=== PATIENT | male | born 1960 | race Caucasian/White ===

== ENCOUNTER 2022-02-23 23:07 | Observation (INO) | payer BC ==
[2022-02-23] MEDS ORDERED: Sodium Chloride 0.9% 10 ML Syringe FLUSH PRN (23:10)
[2022-02-23] MEDS ORDERED: Diltiazem 25 MG/5 ML SDV IVPUSH ONE (23:17)
[2022-02-23 23:58] LABS: ESTIMATED GFR 39 mL/min (>60); TROPONIN I HIGH SENSITIVITY 23.8 pg/mL (<=60.3)
[2022-02-24] MEDS ORDERED: Sodium Chloride 0.9% 1,000 ML IV SCH ×2 (00:15→01:03)
[2022-02-24] MEDS ORDERED: Enoxaparin 40 MG/0.4 ML Syringe SUBCUT SCH (01:03)
[2022-02-24] MEDS ORDERED: LORazepam 0.5 MG Tab PO PRN (01:03)
[2022-02-24] MEDS ORDERED: Ondansetron 4 MG Tab.DIS PO PRN (01:03)
[2022-02-24] MEDS ORDERED: oxyCODONE 5 MG Tab PO PRN (01:03)
[2022-02-24] MEDS ORDERED: Ondansetron 4 MG/2 ML SDV IV PRN (01:03)
[2022-02-24] MEDS ORDERED: Acetaminophen 325 MG Tab PO PRN (01:03)
[2022-02-24] MEDS ORDERED: Bisacodyl 5 MG Tab PO PRN (01:03)
[2022-02-24] MEDS ORDERED: Morphine 2 MG/ML SYRINGE IVPUSH PRN (01:03)
[2022-02-24] MEDS ORDERED: Docusate Sodium 100 MG Cap PO PRN (01:03)
[2022-02-24] MEDS ORDERED: Pantoprazole 40 MG Vial IV SCH (09:00)
[2022-02-24] MEDS ORDERED: Pantoprazole 40 MG Tab.CR ONE (09:00)
[2022-02-24] MEDS ORDERED: CHLORTHALIDONE PO SCH (09:10)
[2022-02-24] MEDS ORDERED: [UNRECOGNIZED DRUG - OTHER] PO SCH (09:10)
[2022-02-24] MEDS ORDERED: ATENOLOL PO SCH (09:10)
== END 2022-02-24 11:55 | disposition home or self-care (01) ==
LOC: JP.ED 23:07 → UNDOADMOB 02-24 00:26 → JP.MS 02-24 00:26 → JP.ZCENSUS 02-24 07:00 → JP.MS 02-24 12:04
PROVIDERS: ADMIT Nurse Practitioner; ATTEND Hospitalist
DX: I48.0 Paroxysmal atrial fibrillation (principal); R55 Syncope and collapse; I11.0 Hypertensive heart disease with heart failure; I50.9 Heart failure, unspecified; F17.210 Nicotine dependence, cigarettes, uncomplicated; R79.89 Other specified abnormal findings of blood chemistry; Z20.822 Contact with and (suspected) exposure to COVID-19; Z79.82 Long term (current) use of aspirin
CPT/HCPCS: 36415; 80053; 83880; 84439; 84443; 84484; 85025; 85610; 85730; 87635; 93005; 93306; 96361; 96374; 99285; A9270; J1650; J3490; J7030; 96372; G0378; U0002

== ENCOUNTER 2023-03-11 04:49 | Emergency (ER) | payer BC ==
[2023-03-11 05:13] LABS: BASOPHILS ABSOLUTE AUTO 0.06 K/uL (0.00-0.10); BASOPHILS PERCENT AUTO 0.7 % (0.1-1.3); EOSINOPHILS ABSOLUTE AUTO 0.24 K/uL (0.00-0.40); EOSINOPHILS PERCENT AUTO 2.6 % (0.0-5.4); HEMATOCRIT 40.9 % (38.4-49.7); IMMATURE GRAN ABSOLUTE AUTO 0.04 K/uL (0.00-0.23); IMMATURE GRAN PERCENT AUTO 0.4 % (0.0-0.7); LYMPHOCYTES ABSOLUTE AUTO 1.95 K/uL (0.8-3.3); LYMPHOCYTES PERCENT AUTO 21.2 % (11.4-47.7); MEAN CORPUSCULAR HEMOGLOBIN 31.9 pg (31.6-35.5); MEAN CORPUSCULAR HGB CONC 34.2 g/dL (31.6-35.5); MEAN CORPUSCULAR VOLUME 93.2 fL (81.4-99.0); MONOCYTES ABSOLUTE AUTO 1.02 K/uL (0.20-0.90); MONOCYTES PERCENT AUTO 11.1 % (3.3-12.6); NEUTROPHILS ABSOLUTE AUTO 5.87 K/uL (1.0-7.6); PLATELET COUNT,PLT 228 K/uL (130-375); RED BLOOD CELL COUNT 4.39 M/uL (4.14-5.76); WHITE BLOOD CELL COUNT,WBC 9.2 K/uL (3.2-11.0)
[2023-03-11 05:37] LABS: A/G RATIO 1.1 (1.2-2.2); ALANINE AMINOTRANSFERASE,ALT 14 U/L (12-78); ALBUMIN 3.6 g/dL (3.4-5.0); ALKALINE PHOSPHATASE 45 U/L (46-116); ASPARTATE AMNIOTRANSFERASE,AST 23 U/L (15-37); BILIRUBIN TOTAL 0.5 mg/dL (0.2-1.0); BLOOD UREA NITROGEN,BUN 27 mg/dL (7-18); CALCIUM 8.7 mg/dL (8.5-10.1); CARBON DIOXIDE,CO2 25 mmol/L (21-32); CHLORIDE,CL 102 mmol/L (100-108); CREATININE 1.5 mg/dL (0.8-1.3); EST CRCL DRUG DOSING (CG) 52.05 mL/min; ESTIMATED GFR 52 mL/min (>60); GLUCOSE RANDOM 92 mg/dL (74-106); POTASSIUM,K 3.6 mmol/L (3.6-5.2); SODIUM,NA 138 mmol/L (140-148)
[2023-03-11 05:39] LABS: ANION GAP 14.6 mmol/L (5.0-14.0)
[2023-03-11 05:51] LABS: CORONAVIRUS COVID-19 NAA NEGATIVE (NEGATIVE); INFLUENZA A NAA NEGATIVE (NEGATIVE); INFLUENZA B NAA NEGATIVE (NEGATIVE); RESPIRATORY SYNCYTIAL VIR NAA NEGATIVE (NEGATIVE)
== END 2023-03-11 06:27 | disposition home or self-care (01) ==
LOC: JP.ED 04:49
DX: R07.89 Other chest pain (principal); R00.2 Palpitations; I10 Essential (primary) hypertension; Z86.16 Personal history of COVID-19; Z20.822 Contact with and (suspected) exposure to COVID-19; Z79.82 Long term (current) use of aspirin; Z79.899 Other long term (current) drug therapy
CPT/HCPCS: 0241U; 36415; 71045; 80053; 84484; 85025; 86140; 93005; 99285